=== PATIENT | female | born 1980 | race Caucasian/White ===

== ENCOUNTER 2022-03-28 17:42 | Outpatient (REF) | payer BC, SELFPAY ==
[2022-03-28 18:32] LABS: Influenza A PCR NEGATIVE (Negative); Influenza B PCR NEGATIVE (Negative); Resp Syncy Virus RNA Qual PCR NEGATIVE (Negative); SARS COV2 PCR INHOUSE NEGATIVE (Negative)
== END 2022-03-28 17:43 | disposition home or self-care (01) ==
LOC: HO.LNP 17:42
PROVIDERS: Visit Provider Internal Medicine
DX: Z20.822 Contact with and (suspected) exposure to COVID-19 (principal); R05.9 Cough, unspecified
CPT/HCPCS: 0241U

== ENCOUNTER 2022-05-01 16:39 | Outpatient (REF) | payer BC, SELFPAY ==
[2022-05-01 17:23] LABS: Influenza A PCR NEGATIVE (Negative); Influenza B PCR NEGATIVE (Negative); Resp Syncy Virus RNA Qual PCR NEGATIVE (Negative); SARS COV2 PCR INHOUSE NEGATIVE (Negative)
== END 2022-05-01 16:40 | disposition home or self-care (01) ==
LOC: HO.LNP 16:39
PROVIDERS: Visit Provider Internal Medicine
DX: Z20.822 Contact with and (suspected) exposure to COVID-19 (principal); R05.9 Cough, unspecified
CPT/HCPCS: 0241U

== ENCOUNTER 2022-05-02 06:34 | Outpatient (REF) | payer BC, SELFPAY ==
--- NOTE | ~2022-05-02 | XR_ITS ---
EXAMINATION: XR CHEST CLINICAL INFORMATION: Cough. Posterior pain. COMPARISON: None TECHNIQUE: 2 views of the chest were obtained. FINDINGS: No significant abnormality is noted involving the heart, lungs, mediastinum, bony thorax or soft tissues. There is mild curvature of the lower thoracic spine to the right. XR/XR chest 2V IMPRESSION: No evidence for acute disease in the chest.
== END 2022-05-02 06:35 | disposition home or self-care (01) ==
LOC: HO.XRAY 06:34
PROVIDERS: PCP Internal Medicine; Visit Provider Internal Medicine
DX: R05.9 Cough, unspecified (principal); R07.89 Other chest pain
CPT/HCPCS: 71046

== ENCOUNTER 2023-03-02 16:18 | Outpatient (REF) | payer BC, SELFPAY ==
[2023-03-02 16:29] LABS: MANUAL DIFF FLAG NO
[2023-03-02 16:56] LABS: Basophils Percent Auto 0.5 % (0-2); Eosinophils Absolute Auto 0.1 X10*3/uL (0.0-0.4); Eosinophils Percent Auto 1.2 % (0-4); Hematocrit 36.7 % (37.0-47.0); Hemoglobin 12.4 g/dl (12.0-16.0); Imm Gran Abs Auto 0.02 X10*3/uL (0.00-0.03); Imm Gran Pct Auto 0.3 % (0.0-0.4); Lymphocytes Percent Auto 40.5 % (20-40); Mean Corpuscular HGB Conc 33.8 g/dl (31.0-35.0); Mean Corpuscular Hemoglobin 30.4 pg (27.0-33.0); Mean Platelet Volume 10.1 fL (9.4-12.3); Monocytes Absolute Auto 0.5 X10*3/uL (0.1-1.2); Monocytes Percent Auto 6.2 % (2-11); Neutrophils Absolute Auto 3.7 x10*3/uL (2.0-8.3); Neutrophils Percent Auto 51.3 % (45-73); Platelet Count 251 X10*3/uL (160-400); Red Blood Count 4.08 X10*6/uL (4.20-5.50); White Blood Count 7.3 X10*3/uL (4.8-10.8)
[2023-03-02 17:51] LABS: Alanine Aminotransferase 9 U/L (0-31); Albumin Level 4.3 g/dL (3.5-5.0); Alkaline Phosphatase 64 U/L (39-117); Anion Gap 12 (12-20); Aspartate Amino Transferase 16 U/L (5-31); Bilirubin Total 0.3 mg/dL (0.0-1.0); Blood Urea Nitrogen 15 mg/dL (9-16); C Reactive Protein 0.17 mg/dL (< or = 0.50); Calcium 9.6 mg/dL (8.4-10.2); Carbon Dioxide 26 mmol/L (22-29); Chloride 104 mmol/L (96-108); Estimated Glomerular Filt Rate > 60; Glucose Random 87 mg/dL (60-115); Iron 112 mcg/dL (30-160); Percent Iron Saturation 41 % (15-50); Potassium 3.7 mmol/L (3.3-5.1); Sodium 138 mmol/L (135-145); Total Iron Binding Capacity 272 mcg/dL (228-428); Total Protein 6.8 g/dL (6.5-8.0); Unsaturated Iron Binding 160 ug/dL
== END 2023-03-02 16:19 | disposition home or self-care (01) ==
LOC: HO.LAB 16:18
PROVIDERS: PCP Internal Medicine; Visit Provider Internal Medicine
DX: R10.9 Unspecified abdominal pain (principal); K62.5 Hemorrhage of anus and rectum
CPT/HCPCS: 36415; 80053; 83540; 85025; 86140

== ENCOUNTER 2024-06-23 15:45 | Outpatient (AMB) | payer BC, SELFPAY ==
--- NOTE | 2024-06-23 15:54 | MHC.OFFVIS ---
Intake Visit Reasons: recurrent UTI's Intake Note: New Patient presents for initial visit for recurrent uti Urology Medications: none Blood Thinner: none PVR: 0ml's Svp Chief Marketing Officer Required: No Accompanied by: Self / Same As Patient Allergies No Known Allergies Allergy (Unverified 06/23/24 16:08) Medication List - Last Reconciled 06/23/24 by Stacia Sifuentes MD citalopram mg PO DAILY lorazepam mg PO nitrofurantoin macrocrystal 50 mg orally Use after sexual activity as directed by MD; must administer with a meal/food phenazopyridine (Pyridium) 200 mg orally Use before sexual activity, repeat in 12 hours p.r.n.; do not take on an empty stomach HPI Comments Details: Britt is a 43-year-old female there is a new patient evaluation for recurrent UTIs. The patient states she has had frequent UTIs in the last year and has brought in urine culture results that I have reviewed last year she had 3 urine culture positive UTIs resulting in E coli that were pansensitive on 07/08/2023, 10/30/2023, and 04/13/2024. She complains of increased urinary urgency. The patient states she has also had reoccurring yeast infections. I have discussed that the vaginal pH can decrease in [place] and postmenopausal women due to estrogen changes leading to increase lactobacillus in the epithium of the vagina which may contribute to recurrent UTIs. I have discussed evaluation with ultrasound of the urinary tract and office cystoscopy. Discussed OTC Replens vaginal lubricant may be helpful with balancing vaginal pH. Discussed trial of low-dose antibiotic post intercourse. Macrobid 50 mg, and Pyridium prn. Urine for cytology. Review of Systems Const All systems reviewed & are unremarkable except as noted in HPI and below Reports no additional complaints Eyes Reports no additional complaints ENT Reports no additional complaints Card Reports no additional complaints Resp Reports no additional complaints GI Reports no additional complaints Reports as per HPI Musc Reports no additional complaints Skin/Breast Reports system reviewed and no additional complaints, except as documented Neuro Reports no additional complaints Psych Reports no additional complaints Endo Reports no additional complaints Leonidas/Lymph Reports no additional complaints Aller/Immun Reports no additional complaints Physical Exam Const General: cooperative, healthy appearing and no acute distress Orientation/consciousness: patient oriented x3 HEENT Head: Yes normal to inspection, Yes normocephalic and Yes atraumatic Eyes Conjunctivae: conjunctivae normal Neck Neck: Yes normal visual inspection and Yes trachea midline Chest Chest palpation & inspection: normal inspection of the chest Resp Effort & Inspection: normal respiratory effort GI Inspection: Yes normal to inspection Neuro General: patient oriented x3 Extrem General: No edema Psych Appearance: grossly normal Office Procedures Post Void Residual Post Residual Void Post Void Residual (PVR): 0 [id number] Void Residual by ultrasound Results AMB Urinalysis, Automated UA Leukoctes 0 Megan/uL Last Edit by [employer] on 06/23/24 16:11 UA Nitrite Last Edit by [employer] on 06/23/24 16:11 UA Urobilinogen 0.2 mg/dL Last Edit by [employer] on 06/23/24 16:11 UA Protein 0 mg/dL Last Edit by [employer] on 06/23/24 16:11 UA pH 6.0 Last Edit by [employer] on 06/23/24 16:11 UA Blood 0 Melo/uL Last Edit by [employer] on 06/23/24 16:11 UA Specific [place] 1.015 Last Edit by [employer] on 06/23/24 16:11 UA Ketone Last Edit by [employer] on 06/23/24 16:11 UA Bilirubin 0 mg/dL Last Edit by [employer] on 06/23/24 16:11 UA Glucose 0 mg/dL Last Edit by [employer] on 06/23/24 16:11 Results Reviewed Results Reviewed: Laboratory Last Values Urine pH (Auto) 6.0 06/23/24 16:09 Specific [place] (Auto) 1.015 06/23/24 16:09 Urine Protein (Auto) 0 mg/dL 06/23/24 16:09 Glucose (UA)(Auto) 0 mg/dL 06/23/24 16:09 Urine Blood (Auto) 0 Melo/uL 06/23/24 16:09 Urine Bilirubin (Auto) 0 mg/dL 06/23/24 16:09 Urine Urobilinogen (Auto) 0.2 mg/dL 06/23/24 16:09 Leukocyte Esterase (Auto) 0 Megan/uL 06/23/24 16:09 Assessment & Plan Assessment & Plan (1) Recurrent urinary tract infection: Code(s): N39.0 - Urinary tract infection, site not specified Category: Medical (2) Urinary urgency: Code(s): R39.15 - Urgency of urination Category: Medical Plan Discussed trial of low-dose antibiotic post intercourse. Macrobid 50 mg, and Pyridium prn. Urine for cytology. Ultrasound urinary tract. Follow-up office cystoscopy. Orders: Orders US retroperitoneal comp Today N39.0 - Urinary tract infection, site not specified, R39.15 - Urgency of urination AMB Urinalysis Automated Today Z13.9 - Encounter for screening, unspecified AMB Post Void Residual by ultrasound Today Z13.9 - Encounter for screening, unspecified Urine Cytology Today N39.0 - Urinary tract infection, site not specified Medications: New phenazopyridine (Pyridium) 200 mg orally Use before sexual activity, repeat in 12 hours p.r.n.; do not take on an empty stomach 30 tabs 1RF nitrofurantoin macrocrystal 50 mg orally Use after sexual activity as directed by MD; must administer with a meal/food 30 caps 1RF Patient Instructions: The patient had an opportunity to ask questions regarding treatment plan. The patient expressed understanding and agreement with the above treatment plan. The patient is aware they should contact our office by phone for worsening of their current condition or the appearance of new symptoms. Compliance is encouraged with any medications and followup testing that is ordered. It is a privilege to be allowed the opportunity to participate in the urologic care of your patient. If you have any questions or concerns regarding treatment for the above conditions please do not hesitate to contact me. The office telephone contact is [phone]. This note is constructed in part using voice recognition software. While every effort has been made to ensure accuracy equipment sterilizer errors may have been included. Yours sincerely, Stacia Sifuentes MD Coding Level of Care Code New Pt Level 4 (34640) Diagnoses Recurrent urinary tract infection N39.0 Urinary urgency R39.15 CPT Codes Post Residual Void - PVR CPT Code: 16694-Oido Void Residual by ultrasound ([id number])
== END 2024-06-23 16:26 | disposition home or self-care (01) ==
LOC: HO.HUSH 15:45
PROVIDERS: PCP Internal Medicine; Visit Provider Urology
DX: N39.0 Urinary tract infection, site not specified (principal); R39.15 Urgency of urination; Z13.9 Encounter for screening, unspecified
CPT/HCPCS: 99204

== ENCOUNTER 2024-06-23 15:45 | Outpatient (REF) | payer BC, SELFPAY ==
[2024-06-23 17:01] LABS: Urine Cytology See Pathology rpt
== END 2024-06-23 15:46 | disposition home or self-care (01) ==
LOC: HO.LAB 15:45
PROVIDERS: PCP Internal Medicine; Visit Provider Urology
DX: R39.15 Urgency of urination (principal); N39.0 Urinary tract infection, site not specified
CPT/HCPCS: 51798; 81003; 88112

== ENCOUNTER 2024-07-29 16:12 | Outpatient (REF) | payer BC, SELFPAY ==
--- NOTE | ~2024-07-29 | US_ITS ---
EXAMINATION: US RETROPERITONEUM HISTORY: N39.0 - Urinary tract infection, site not specified TECHNIQUE: Real-time grayscale ultrasound imaging of the kidneys was performed and images were reviewed. COMPARISON: Correlation is made with the report of an abdominal ultrasound dated 04/20/2012. FINDINGS: Right kidney: The right kidney measures 11.3 x 3.8 x 5.3 cm. Renal parenchymal echotexture and thickness are normal. There are no masses. There is no hydronephrosis or renal calculi. Left Kidney: The left kidney measures 10.3 x 4.8 x 4.9 cm. Renal parenchymal echotexture and thickness are normal. There are no masses. There is no hydronephrosis or renal calculi. The urinary bladder is unremarkable. Bilateral ureteral jets are identified. Prior to voiding, the urinary bladder measured 11.1 x 10.1 x 9.4 cm, for an estimated volume of 548 mL. After voiding, the urinary bladder measured 4.2 x 2.8 x 2.5 cm, for an estimated volume of 15 mL. Incidental note is made of an echogenic mass in the right lobe of the liver measuring 5.0 x 4.0 x 3.5 cm. This may represent a hemangioma, but is much larger in size than reported on the prior study (previously 1.4 cm). US/US retroperitoneal comp IMPRESSION: 1. Unremarkable renal ultrasound. Post void bladder residual of 15 mL. 2. 5.0 x 4.0 x 3.5 cm echogenic mass in the right lobe of the liver which may represent a hemangioma. However, this is much larger than reported on the prior study. Liver MRI is recommended. Electronically signed by: Danilo York MD 08/01/2024 07:09 AM EDT
== END 2024-07-29 16:13 | disposition home or self-care (01) ==
LOC: HO.US 16:12
PROVIDERS: PCP Internal Medicine; Visit Provider Urology
DX: N39.0 Urinary tract infection, site not specified (principal); R39.15 Urgency of urination
CPT/HCPCS: 76770

== ENCOUNTER → 2024-07-29 16:13 | Outpatient (BNV) | payer BC, SELFPAY | PROVIDERS: PCP Internal Medicine; Visit Provider Radiology Diagnostic Radiology | DX: N39.43 Post-void dribbling (principal); K76.89 Other specified diseases of liver | CPT/HCPCS: 76770 ==

== ENCOUNTER 2024-08-05 16:01 | Outpatient (AMB) | payer BC, SELFPAY ==
--- NOTE | 2024-08-05 16:03 | A.OFFVIS_ITS ---
Intake Visit Reasons: 5w/US Intake Note: Patient presents for initial visit for 5w/US Urology Medications: macrobid Blood Thinner:none Allergy to Antibiotic:none Research Associate Molecular Biology Required: No Accompanied by: Self / Same As Patient Allergies No Known Allergies Allergy (Verified 08/05/24 16:04) Medication List - Last Reconciled 08/05/24 by Stacia Sifuentes MD citalopram mg PO DAILY lorazepam mg PO nitrofurantoin macrocrystal 50 mg orally Use after sexual activity as directed by MD; must administer with a meal/food HPI Comments Details: 08/05/24--43-year-old female presenting with recurrent urinary tract infections. She has been experiencing these infections periodically and, for management, was placed on a low-dose prophylactic antibiotic regimen following intercourse, which has so far proven effective. She has not reported any further episodes of UTIs since adopting this treatment. During a renal ultrasound, initially intended to evaluate her urinary disorders, an incidental finding revealed echogenic foci in the liver. She expresses significant concern about this finding and desires a detailed assessment regarding its implication. Currently, there are no chronic urinary symptoms, and her recent urinalysis results show no abnormalities. Referral to GI. Results - Renal Ultrasound: Kidneys normal; echogenic foci in the liver detected - Urine cytology: Negative for malignant cells, 06/23/24--Britt is a 43-year-old female there is a new patient evaluation for recurrent UTIs. The patient states she has had frequent UTIs in the last year and has brought in urine culture results that I have reviewed last year she had 3 urine culture positive UTIs resulting in E coli that were pansensitive on 07/08/2023, 10/30/2023, and 04/13/2024. She complains of increased urinary urgency. The patient states she has also had reoccurring yeast infections. I have discussed that the vaginal pH can decrease in [place] and postmenopausal women due to estrogen changes leading to increase lactobacillus in the epithium of the vagina which may contribute to recurrent UTIs. I have discussed evaluation with ultrasound of the urinary tract and office cystoscopy. Discussed OTC Replens vaginal lubricant may be helpful with balancing vaginal pH. Discussed trial of low-dose antibiotic post intercourse. Macrobid 50 mg, and Pyridium prn. Urine for cytology. Review of Systems Const All systems reviewed & are unremarkable except as noted in HPI and below Reports no additional complaints Eyes Reports no additional complaints ENT Reports no additional complaints Card Reports no additional complaints Resp Reports no additional complaints GI Reports no additional complaints Reports as per HPI Musc Reports no additional complaints Skin/Breast Reports system reviewed and no additional complaints, except as documented Neuro Reports no additional complaints Psych Reports no additional complaints Endo Reports no additional complaints Leonidas/Lymph Reports no additional complaints Aller/Immun Reports no additional complaints Office Procedures Post Void Residual Post Residual Void Post Void Residual (PVR): 0 [id number] Void Residual by ultrasound Results AMB Urinalysis, Automated UA Leukoctes 0 Megan/uL Last Edit by Viktoriya Alberto on 08/05/24 16:24 UA Nitrite Negative Last Edit by Viktoriya Alberto on 08/05/24 16:24 UA Urobilinogen 0.2 mg/dL Last Edit by Viktoriya Alberto on 08/05/24 16:24 UA Protein 15 mg/dL Last Edit by Viktoriay Alberto on 08/05/24 16:24 UA pH 6.0 Last Edit by Viktoriya Alberto on 08/05/24 16:24 UA Blood 0 Melo/uL Last Edit by Viktoriya Alberto on 08/05/24 16:24 UA Specific [place] 1.020 Last Edit by Viktoriya Alberto on 08/05/24 16:24 UA Ketone Negative Last Edit by Viktoriya Alberto on 08/05/24 16:24 UA Bilirubin 0 mg/dL Last Edit by Viktoriya Alberto on 08/05/24 16:24 UA Glucose 0 mg/dL Last Edit by Viktoriya lAberto on 08/05/24 16:24 Results Reviewed Results Reviewed: Laboratory Last Values Urine pH (Auto) 6.0 08/05/24 16:21 Specific [place] (Auto) 1.020 08/05/24 16:21 Urine Protein (Auto) 15 mg/dL 08/05/24 16:21 Glucose (UA)(Auto) 0 mg/dL 08/05/24 16:21 Urine Ketones (Auto) Negative 08/05/24 16:21 Urine Blood (Auto) 0 Melo/uL 08/05/24 16:21 Urine Nitrite (Auto) Negative 08/05/24 16:21 Urine Bilirubin (Auto) 0 mg/dL 08/05/24 16:21 Urine Urobilinogen (Auto) 0.2 mg/dL 08/05/24 16:21 Leukocyte Esterase (Auto) 0 Megan/uL 08/05/24 16:21 Collected: 06/23/24 Location: .LAB Received: 06/24/24 Diagnosis Urine: Negative for high-grade urothelial carcinoma. See comment. COMMENT: Cellular specimen consisting of squamous cells and few macrophages. Date of Service: 07/29/24 EXAMINATION: US RETROPERITONEUM HISTORY: N39.0 - Urinary tract infection, site not specified TECHNIQUE: Real-time grayscale ultrasound imaging of the kidneys was performed and images were reviewed. COMPARISON: Correlation is made with the report of an abdominal ultrasound dated 04/20/2012. FINDINGS: Right kidney: The right kidney measures 11.3 x 3.8 x 5.3 cm. Renal parenchymal echotexture and thickness are normal. There are no masses. There is no hydronephrosis or renal calculi. Left Kidney: The left kidney measures 10.3 x 4.8 x 4.9 cm. Renal parenchymal echotexture and thickness are normal. There are no masses. There is no hydronephrosis or renal calculi. The urinary bladder is unremarkable. Bilateral ureteral jets are identified. Prior to voiding, the urinary bladder measured 11.1 x 10.1 x 9.4 cm, for an estimated volume of 548 mL. After voiding, the urinary bladder measured 4.2 x 2.8 x 2.5 cm, for an estimated volume of 15 mL. Incidental note is made of an echogenic mass in the right lobe of the liver measuring 5.0 x 4.0 x 3.5 cm. This may represent a hemangioma, but is much larger in size than reported on the prior study (previously 1.4 cm). 1. Unremarkable renal ultrasound. Post void bladder residual of 15 mL. 2. 5.0 x 4.0 x 3.5 cm echogenic mass in the right lobe of the liver which may represent a hemangioma. However, this is much larger than reported on the prior study. Liver MRI is recommended. Assessment & Plan Assessment & Plan (1) Liver lesion: Code(s): K76.9 - Liver disease, unspecified Category: Medical (2) Recurrent urinary tract infection: Code(s): N39.0 - Urinary tract infection, site not specified Category: Medical Plan Plan - Continue the current antibiotic regimen as prescribed. - Expect a call from the GI specialist office for appointment scheduling. - Monitor for any recurrent symptoms of UTI and report promptly. - Plan for a follow-up appointment in six months for re-evaluation. Orders: Orders AMB Urinalysis Automated Today Z13.9 - Encounter for screening, unspecified Referrals Gastroenterology Referral K76.9 - Liver disease, unspecified Patient Instructions: The patient had an opportunity to ask questions regarding treatment plan. The patient expressed understanding and agreement with the above treatment plan. The patient is aware they should contact our office by phone for worsening of t heir current condition or the appearance of new symptoms. Compliance is encouraged with any medications and followup testing that is ordered. It is a privilege to be allowed the opportunity to participate in the urologic care of your patient. If you have any questions or concerns regarding treatment for the above conditions please do not hesitate to contact me. The office telephone contact is [phone]. This note is constructed in part using voice recognition software. While every effort has been made to ensure accuracy packaging supervisor errors may have been included. Yours sincerely, Stacia Sifuentes MD Scribe Plan - Not visible on output: Patient was informed and verbally consented to the use of an ambient scribe for clinic note documentation during this visit. Coding Level of Care Code Est Pt Level 4 (61007) Diagnoses Liver lesion K76.9 Recurrent urinary tract infection N39.0 CPT Codes Post Residual Void - PVR CPT Code: 25144-[facility] Void Residual by ultrasound ([id number])
== END 2024-08-05 16:35 | disposition home or self-care (01) ==
LOC: HO.HUSH 16:01
PROVIDERS: PCP Internal Medicine; Visit Provider Urology
DX: K76.9 Liver disease, unspecified (principal); N39.0 Urinary tract infection, site not specified; Z13.9 Encounter for screening, unspecified
CPT/HCPCS: 99214

== ENCOUNTER → 2024-08-05 16:01 | Outpatient (BNVA) | payer BC, SELFPAY | PROVIDERS: PCP Internal Medicine; Visit Provider Urology | DX: K76.9 Liver disease, unspecified (principal); N39.0 Urinary tract infection, site not specified | CPT/HCPCS: 51798; 81003 ==

== ENCOUNTER 2024-08-17 13:04 | Outpatient (AMB) | payer BC, SELFPAY ==
--- NOTE | 2024-08-17 13:12 | A.OFFPC_ITS ---
Vital Signs 08/17/24 13:15 Height 5 ft 3 in Weight 154 lb BMI 27.3 BP 120/72 Blood Pressure Location Lt brachial Position Sitting Pulse 92 Pulse Source Pulse Oximeter Temp 97.4 F Temp Source Axillary Pulse Oximetry (%) 97 Oxygen Delivery Method Room Air Intake Visit Reasons: Routine Referral Lead Janitor Required: No Accompanied by: Self / Same As Patient Allergies No Known Allergies Allergy (Verified 08/17/24 13:49) Medication List - Last Reconciled 08/17/24 by Tyrel Golden MD citalopram mg PO DAILY lorazepam 0.5 mg PO DAILY PRN nitrofurantoin macrocrystal 50 mg orally Use after sexual activity as directed by MD; must administer with a meal/food Tobacco use date assessed: 08/17/24 Dental Screening Dental Screen Date: 08/17/24 Did you have a dental visit in the last 12 months?: Yes Did you have a dental problem in the last 6 months where you did not have access to dental care?: No [facility] Medical History (Updated 08/17/24 @ 13:50 by Tyrel Golden MD) Generalized anxiety disorder Hemangioma of liver Family History Mother No problems noted. Father No problems noted. Social History Housing: House Patient Tobacco Use Status: Never used Tobacco e-Cigarette/Vaping Use: Never Used service: No Current occupational status: employed Cognitive needs: No Hearing needs: No Vision needs: Yes (reading glasses) Questionnaire PHQ-9 Over the last 2 weeks, how often have you been bothered by any of the following problems? 1. Little interest or pleasure in doing things: not at all 2. Feeling down, depressed, or hopeless: not at all 3. Trouble falling or staying asleep, or sleeping too much: not at all 4. Feeling tired or having little energy: not at all 5. Poor appetite or overeating: not at all 6. Feeling bad about yourself - or that you are a failure or have let yourself or your family down: not at all 7. Trouble concentrating on things, such as reading the newspaper or watching television: not at all 8. Moving or speaking so slowly that other people could have noticed. Or the opposite - being so fidgety or restless that you have been moving around a lot more than usual: not at all 9. Thoughts that you would be better off or of hurting yourself in some way: not at all Total score: 0 Depression Screening Interpretation: Negative Depression Screening Done: Yes Source: Developed by Drs. Danilo Santos, Juani Peralta, Miki Bonilla and colleagues, with an educational mariah from [employer]. Thrive Questionnaire Date Thrive assessed: 08/17/24 I am a: Patient Within the past 12 months, did the food you bought not last and you didn't have the money to get more?: Never true Within the past 12 months, did you worry whether your food would run out before you got money to buy more?: Never true Do you have trouble paying for medicines?: No Do you have trouble getting transportation to medical appointments?: No Do you have trouble paying your heating and electricity bill?: No Do you have trouble taking care of your child, family member or friend?: No Do you have trouble with day-to-day activities such as bathing, preparing meals, shopping, managing finances, etc.?: No Are you currently unemployed and looking for a job?: No Are you interested in more education?: No Currently or been in a relationship where the following occur: No concerns reported THRIVE Score: 0 AUDIT C Alcohol Use Questionnaire (AUDIT-C) 1. How often do you have a drink containing alcohol?: Monthly or less 2. How many drinks containing alcohol do you have on a typical day when you are drinking?: 1 or 2 3. How often do you have six or more drinks on one occasion?: Less than monthly Total Score: 2 NOEMI-7 AMB Questionnaire NOEMI-7 Date NOEMI - 7 assessed: 08/17/24 Feeling nervous, anxious, or on edge: 0 = Not at all Not being able to stop or control worryin = Not at all Worrying too much about different things: 0 = Not at all Trouble relaxin = Not at all Being so restless that it is hard to sit still: 0 = Not at all Becoming easily annoyed or irritable: 0 = Not at all Feeling afraid as if something awful might happen: 0 = Not at all Total NOEMI-7 score (0-4 normal; 5-9 mild; 10-14 moderate; 15-21 severe): 0 Source: Developed by Drs. Danilo Santos, Juani Peralta, Miki Bonilla and colleagues, with an educational mariah from [employer]. Physical exam (Primary Care) Vital Signs: Last Vital Signs Temp 97.4 F 08/17/24 13:15 Pulse 92 08/17/24 13:15 BP 120/72 08/17/24 13:15 Pulse Ox 97 08/17/24 13:15 Oxygen Delivery Method Room Air 08/17/24 13:15 Care Plan Goal for BP management: BP is in range. BMI result Body Mass Index 27.3 Tobacco/Smoking Status: Tobacco use Status Tobacco use date assessed 08/17/24 08/17/24 13:14 Patient Tobacco Use Status Never used Tobacco 08/17/24 13:14 e-Cigarette/Vaping Use Never Used 08/17/24 13:14 PHQ-9: PHQ-9 Score PHQ-9: Total score 0 08/17/24 13:14 Depression Screening Interpretation: Negative Thrive Assessment: Date of Thrive Assessment Date Thrive assessed 08/17/24 08/17/24 13:14 Currently or been in a relationship where the following occur: No concerns reported Coding Level of Care Code New Pt Level 4 (44722) Complex EM visit Add On G2211 Diagnoses Hemangioma of liver D18.03 Generalized anxiety disorder F41.1 Assessment & Plan Assessment & Plan (1) Hemangioma of liver: Code(s): D18.03 - Hemangioma of intra-abdominal structures Category: Medical Plan: MR of the abdomen ordered. (2) Generalized anxiety disorder: Code(s): F41.1 - Generalized anxiety disorder Category: Medical Plan History of Present Illness The patient is a 43-year-old female presenting with a request for a referral to a logistics support following the discovery of an incidental liver finding during an ultrasound conducted as part of a workup for recurrent urinary tract infections. After experiencing recurrent urinary tract infections, the patient consulted Dr. Kwaku Ferraro, a urologist, and underwent a kidney and bladder ultrasound. The ultrasound showed normal results for the kidneys and bladder, but revealed an unexpected liver finding. The patient received a recommendation for a liver MRI. However, during her follow-up visit with the urologist, the issue was not addressed, and the patient was directed to seek a referral for a logistics support consultation. The patient expressed concern about this incidental finding and is anxious for further evaluation and management, emphasizing her need for a primary care provider's referral to proceed with the gastroenterological assessment. Social History Review of Systems - Genitourinary: Reports recurrent urinary tract infections. - Gastrointestinal: Reports incidental finding on liver. Physical Exam General: Cooperative and healthy appearing Nutritional Appearance: Well nourished Orientation/consciousness: Patient oriented x3 Limitations: No limitations Head: Normal to inspection General: Appearance normal, both eyes and all related structures Neck: Normal visual inspection Chest: Normal palpation of entire chest wall Respiratory: Normal respiratory effort Neurology: Patient oriented x3 Results - Imaging: Incidental liver finding noted on kidney and bladder ultrasound. Plan A referral to a logistics support is planned to further evaluate the incidental liver finding noted during the patient?s recent kidney and bladder ultrasound. T his referral is based on the need to assess and manage the liver finding appropriately and to explore potential underlying conditions. I acknowledged the patient's concerns regarding the finding and emphasized the importance of specialist input in this matter. Patient was informed and verbally consented to the use of an ambient scribe for clinic note documentation during this visit. Discussion Notes We discussed the importance of evaluating the incidental liver finding with a logistics support, as recommended in the imaging report. I explained that the logistics support would provide a more detailed assessment and outline the appropriate next steps. We discussed the need for a referral and its role in gaining access to specialist care for further evaluation. The patient expressed concern and anxiety regarding the incidental finding. I reassured her that the referral is a necessary step to ensure comprehensive evaluation and peace of mind. Patient Instructions - Seek a referral to a logistics support for evaluation of the liver finding. - Follow up with the logistics support as advised. - Report any new symptoms immediately. Orders: Orders Basic Metabolic Panel Today K76.9 - Liver disease, unspecified Complete Blood Count no Diff Today K76.9 - Liver disease, unspecified Liver Panel Today K76.9 - Liver disease, unspecified UA and rflx microscopic Today K76.9 - Liver disease, unspecified Lipid Panel Today K76.9 - Liver disease, unspecified Thyroid Stimulating Hormone Today K76.9 - Liver disease, unspecified MR abdomen wo/w con Today D18.03 - Hemangioma of intra-abdominal structures
[2024-08-17 13:15] VITALS: BP 120/72; PULSE 92; TEMP 36.3; O2SAT 97; BMI 27.3
== END 2024-08-17 13:44 | disposition home or self-care (01) ==
LOC: HO.HMCHD 13:08
PROVIDERS: PCP Internal Medicine; Visit Provider Internal Medicine
DX: D18.03 Hemangioma of intra-abdominal structures (principal); F41.1 Generalized anxiety disorder

== ENCOUNTER → 2024-08-17 13:04 | Outpatient (BNVA) | payer BC, SELFPAY | PROVIDERS: PCP Internal Medicine; Visit Provider Internal Medicine ==

== ENCOUNTER 2024-09-01 08:41 | Outpatient (REF) | payer BC, SELFPAY ==
--- NOTE | ~2024-09-01 | MR_ITS ---
EXAMINATION: MRI Abdomen without and with contrast HISTORY: D18.03 - Hemangioma of intra-abdominal structures COMPARISON: Relation is made with a retroperitoneal ultrasound dated 07/29/2024. TECHNIQUE: Axial in and out of phase T1-weighted gradient echo, axial diffusion weighted, and axial and coronal HASTE T2 with fat saturation images were obtained through the abdomen. Subsequently, fat suppressed axial and coronal T1-weighted images were obtained after the intravenous administration of 7 mL Gadavist. FINDINGS: There is no significant signal loss within the liver on opposed phase imaging to suggest steatosis. There is a 3.6 x 3.0 x 4.3 cm T2 hyperintense lobulated mass in segment VII corresponding to the abnormality noted on ultrasound. This lesion demonstrates peripheral nodular enhancement with gradual fill in over time. Findings are consistent with a hemangioma. There is an additional 8 mm hemangioma in segment VIII and an 8 mm hemangioma in segment . There is a 2.4 cm cyst in segment IV. The hepatic and portal veins are patent. There is no intra or extrahepatic biliary ductal dilatation. The gallbladder, spleen, pancreas, adrenals, and kidneys are unremarkable. No retroperitoneal lymphadenopathy or ascites is identified in the upper abdomen. The visualized bones demonstrate normal marrow signal intensity. MR/MR abdomen wo/w con IMPRESSION: Dominant 3.6 x 3.0 x 4.3 cm hemangioma in segment VII corresponding to the abnormality noted on ultrasound. Additional smaller subcentimeter hemangiomata are noted as described. Electronically signed by: Danilo York MD 09/02/2024 08:39 AM EDT
[2024-09-01 09:43] LABS: Hematocrit 39.8 % (37.0-47.0); Hemoglobin 13.4 g/dl (12.0-16.0); Mean Corpuscular HGB Conc 33.7 g/dl (31.0-35.0); Mean Corpuscular Hemoglobin 29.9 pg (27.0-33.0); Mean Corpuscular Volume 88.8 fL (80.0-98.0); Platelet Count 269 X10*3/uL (160-400); Red Blood Count 4.48 X10*6/uL (4.20-5.50); Red Cell Distribution Width 11.8 % (11.0-16.0); White Blood Count 5.1 X10*3/uL (4.8-10.8)
[2024-09-01 09:49] LABS: Appearance Urine Cloudy; Color Urine Yellow; Glucose Urine UA Negative (Negative); Leukocyte Esterase Urine Negative (Negative); Nitrite Urine Negative (Negative); Urine Blood Negative (Negative); Urine Ketones Negative (Negative); Urine Protein Negative (Neg-Trace)
[2024-09-01] MEDS: gadobutroL 7.5 ML VIAL IVPUSH (10:12)
[2024-09-01 10:34] LABS: Alanine Aminotransferase 17 U/L (0-31); Albumin Level 4.2 g/dL (3.5-5.0); Alkaline Phosphatase 65 U/L (39-117); Anion Gap 11 (12-20); Aspartate Amino Transferase 21 U/L (5-31); Bilirubin Direct 0.2 mg/dL (0.0-0.5); Bilirubin Total 0.5 mg/dL (0.0-1.0); Blood Urea Nitrogen 16 mg/dL (9-16); Calcium 9.1 mg/dL (8.4-10.2); Carbon Dioxide 24 mmol/L (22-29); Chloride 108 mmol/L (96-108); Cholesterol 220 mg/dL (<200); Estimated Glomerular Filt Rate > 60; Glucose Random 101 mg/dL (60-115); HDL Cholesterol 54 mg/dL (>40); LDL Cholesterol Calculated 137 mg/dL (<100); Potassium 4.2 mmol/L (3.3-5.1); Sodium 139 mmol/L (135-145); Total Protein 6.7 g/dL (6.5-8.0); Triglycerides 147 mg/dL (<150)
[2024-09-01 10:36] LABS: Thyroid Stimulating Hormone 2.65 uIU/mL (0.32-4.0)
== END 2024-09-01 08:42 | disposition home or self-care (01) ==
LOC: HO.MRI 08:41
PROVIDERS: PCP Internal Medicine; Visit Provider Internal Medicine
DX: D18.03 Hemangioma of intra-abdominal structures (principal); K76.9 Liver disease, unspecified
CPT/HCPCS: 36415; 74183; 80048; 80061; 80076; 81003; 84443; 85027; A9585

== ENCOUNTER → 2024-09-01 09:02 | Outpatient (BNV) | payer BC, SELFPAY | PROVIDERS: PCP Internal Medicine; Visit Provider Radiology Diagnostic Radiology | DX: D18.03 Hemangioma of intra-abdominal structures (principal) | CPT/HCPCS: 74183 ==

== ENCOUNTER 2025-03-08 15:44 | Outpatient (AMB) | payer BC, SELFPAY ==
--- NOTE | 2025-03-08 14:04 | MHC.PC.OV ---
Vital Signs 03/08/25 15:51 Height 5 ft 2.52 in Weight 71.214 kg BMI 28.2 BP 120/76 Blood Pressure Location Lt brachial Position Sitting Respiration 18 Pulse 80 Pulse Source Pulse Oximeter Temp 97.6 F Temp Source Temporal Artery Scan Pulse Oximetry (%) 98 Oxygen Delivery Method Room Air Intake Visit Reasons: ROUTINE Saddle Maker Required: No Accompanied by: Self / Same As Patient Allergies No Known Allergies Allergy (Verified 03/08/25 14:04) Medication List - Last Reconciled 03/08/25 by VANESSA Santiago albuterol sulfate 90 mcg/actuation (Ventolin HFA) 1 inh inhalation QID PRN albuterol sulfate 90 mcg/actuation 2 inhalations inhalation Q6H PRN citalopram mg PO DAILY doxycycline hyclate 50 mg PO BID lorazepam 0.5 mg PO DAILY PRN tacrolimus 0.1% topical Tobacco use date assessed: 08/17/24 Dental Screening Dental Screen Date: 08/17/24 HPI HPI Comments History of Present Illness Details 44-year-old female with history of generalized anxiety disorder, asthma, recurrent UTI, hemangioma of the liver presenting to the office today for management of chronic conditions and to establish care. Mild intermittent asthma- triggered by URI. Only uses with upper respiratory infection NOEMI- no therapist/psychiatrist. On celexa and ativan Perioral dermatitis/periorbital dermatitis- uses doxy 50 mg twice daily for prophylaxis. Chronic yeast infections as a result. Follows with Kimmie Noel at [facility]. pre and probiotic as well as activity yogurt Hyperlipidemia-last LDL 136. Not on statin Liver hemangioma- MRI abdomen with/without contrast 08/2024: Dominant 3.6 x 3.0 x 4.3 cm hemangioma in segment VII corresponding to the abnormality noted on ultrasound. Additional smaller subcentimeter hemangiomata are noted as described. LFTs WNL. Has not seen GI for this. No abd pain, n/v, jaundice Concerns: ?Perimenopause- feels more reactive. decreased libido. difficulty losing weight. Difficulties with word finding adhd- long standing. good student. More recently scatter brained, all over the place Health maintenance: Due for mammogram Colonoscopy scheduled for next month Last Pap 05/2021 with 5 year follow-up advised. Follows annually with recruiting operations consultant. Dr. Leon at [facility] ROS: See HPI EXAM: Constitutional - Awake and Alert, No apparent distress Eyes - PERRL Cardiovascular - S1S2, RRR, No edema Respiratory - Normal lung expansion, Normal respiratory effort, No respiratory distress, CTA bilaterally Extremities - no calf tenderness bilaterally, no swelling Skin - Warm/Dry Neurological - Alert & oriented x3 Psychological - Appropriate affect [facility] Medical History (Updated 03/08/25 @ 17:01 by VANESSA Santiago) Attention deficit Hyperlipidemia Generalized anxiety disorder Hemangioma of liver Family History (Updated 03/08/25 @ 16:14 by VANESSA Santiago) Mother No problems noted. Father HLD (hyperlipidemia) Diabetes HTN (hypertension) Acoustic neuroma Pulmonary embolism Social History Housing: House Patient Tobacco Use Status: Never used Tobacco e-Cigarette/Vaping Use: Never Used service: No Current occupational status: employed Cognitive needs: No Hearing needs: No Vision needs: Yes (reading glasses) Questionnaire Thrive Questionnaire Date Thrive assessed: 08/17/24 NOEMI-7 AMB Questionnaire NOEMI-7 Date NOEMI - 7 assessed: 08/17/24 Source: Developed by Drs. Danilo Santos, Juani Peralta, Miki Bonilla and colleagues, with an educational mariah from [employer]. Physical exam (Primary Care) Vital Signs: Last Vital Signs Temp 97.6 F 03/08/25 15:51 Pulse 80 03/08/25 15:51 Resp 18 03/08/25 15:51 BP 120/76 03/08/25 15:51 Pulse Ox 98 03/08/25 15:51 Oxygen Delivery Method Room Air 03/08/25 15:51 BMI result Body Mass Index 28.2 Tobacco/Smoking Status: Tobacco use Status Tobacco use date assessed 08/17/24 03/08/25 14:04 Patient Tobacco Use Status Never used Tobacco 03/08/25 14:04 e-Cigarette/Vaping Use Never Used 03/08/25 14:04 Thrive Assessment: Date of Thrive Assessment Date Thrive assessed 08/17/24 03/08/25 14:04 Coding Level of Care Code New Pt Level 4 (35900) Diagnoses Hyperlipidemia E78.5 Attention deficit R41.840 Perimenopausal N95.1 Hemangioma of liver D18.03 Periorbital dermatitis L30.9 Assessment & Plan Assessment & Plan (1) Hyperlipidemia: Code(s): E78.5 - Hyperlipidemia, unspecified Category: Medical Plan: LDL 136. Recommend diet low in saturated fats and highly processed foods. Regular exercise (2) Attention deficit: Code(s): R41.840 - Attention and concentration deficit Category: Medical Plan: Question if this is related to hormonal fluctuation/perimenopause. Advised further discussion with recruiting operations consultant or functional medicine provider regarding hormonal imbalance and consideration for hormone replacement. Can have further discussion on medications specific to adhd if indicated (3) Perimenopausal: Code(s): N95.1 - Menopausal and female climacteric states Category: Medical Plan: As above (4) Hemangioma of liver: Code(s): D18.03 - Hemangioma of intra-abdominal structures Category: Medical Plan: Mild-medium sized hemangiomas of the liver. Referred to gastroenterology for further evaluation, will likely need imaging surveillance if not further intervention (5) Periorbital dermatitis: Code(s): L30.9 - Dermatitis, unspecified Category: Medical Plan: Doxycycline causing recurrent vulvovaginal candidiasis. Given her other medications, would not recommend prophylaxis with fluconazole. However can use this as needed 1 time dose. Recommend following up with her mold carrier to discuss other treatment options besides doxycycline. Advised to continue with pre and probiotic can also use yogurt for life cultures. Plan Follow-up for annual physical exam Orders: Orders MM tomosynthesis screening BI Today Z12.31 - Encounter for screening mammogram for malignant neoplasm of breast Referrals Gastroenterology Referral D18.03 - Hemangioma of intra-abdominal structures Medications: New fluconazole Repeat course as needed no more than once monthly 150 mg PO Q3D 2 tabs 5RF 2 doses
[2025-03-08 15:51] VITALS: BP 120/76; PULSE 80; RESP 18; TEMP 36.4; O2SAT 98; BMI 28.2
--- OUTSIDE RECORDS SUMMARY | 2025-03-08 19:57 | XMS_ITS | Clinical Summary ---
Author Organization [facility] Address [address] [place] [id number] Phone Care Team Providers Care Computerized Table Cutter Name Role Phone Darin Alejandra MD Primary Care Provider Allergies Active Allergy Reactions Criticality Noted Date Comments Adhesive Itching 04/13/2024 Medications citalopram (CELEXA) 20 MG tablet Take 20 mg by mouth daily. Active phenazopyridine (PYRIDIUM) 100 MG tablet Take 2 tablets (200 mg total) by mouth 3 (three) times a day as needed for pain (specific location in comments) (URINARY DISCOMFORT). 12 tablet 4 Active phenazopyridine (PYRIDIUM) 100 MG tablet Take 2 tablets (200 mg total) by mouth 3 (three) times a day as needed for pain (specific location in comments) (URINARY DISCOMFORT). 12 tablet Active Additional Information Patient not taking.Reported on 04/13/2024 Active Problems No known active problems Immunizations No known immunizations Social History Tobacco Use Types Packs/Day Years Used Date Smoking Tobacco: Former Cigarettes Smokeless Tobacco: Never Tobacco Cessation:Counseling Given: Not Answered Education Answer Date Recorded Are you interested in more education? Not on dora e 06/21/2023 Are you concerned about learning? Not on file 06/21/2023 No 06/21/2023 No 06/21/2023 Digital Access Answer Date Recorded No 06/21/2023 No 06/21/2023 Reliable internet access at home? Not on file 06/21/2023 Device with a working camera? Not on file Comments Unknown Sex and Gender Information Value Date Recorded Sex Assigned at Not on file Legal Sex Female 11:47 AM EST Gender Identity Not on file Sexual Orientation Not on file Last Filed Vital Signs Vital Sign Reading Time Taken Comments Blood Pressure 118/79 04/13/2024 3:43 PM EST Pulse 88 04/13/2024 3:43 PM EST Temperature 36.6 C (97.8 F) 04/13/2024 3:43 PM EST Respiratory Rate 17 04/13/2024 3:43 PM EST Oxygen Saturation 99% 04/13/2024 3:43 PM EST Inhaled Oxygen Concentration - - Weight 68 kg (150 lb) 06/30/2023 10:41 AM EST pe r pt Height - - Body Mass Index - - Plan of Treatment Health Maintenance Due Date Last Done Comments Adult Td,Tdap Booster 1979 LIPID PANEL 1979 DEPRESSION SCREENING 1991 SMOKING Hx and SMOKELESS TOBACCO SCREENING 08/27/1992 HEPATITIS C SCREENING 08/27/1997 HIV ONE-TIME SCREENING (18-65 YEARS) 08/27/1997 PAP SMEAR 08/27/2000 MAMMOGRAM 2019 COLOGUARD 08/27/2024 COLONOSCOPY 08/27/2024 COLORECTAL CANCER SCREENING 08/27/2024 FIT TEST 08/27/2024 FOBT 08/27/2024 SIGMOIDOSCOPY 08/27/2024 VIRTUAL COLONOSCOPY 08/27/2024 INFLUENZA VACCINE (#1) 2024 , 03/30/2022, 02/19/2021, Additional history exists COVID-19 VACCINE ( season) 2025 05/18/2021, 08/15/2020, 07/25/2020 HEPATITIS A VACCINES Aged Out No long er eligible based on patient's age to complete this topic HIB VACCINES Aged Out No longer eligi ble based on patient's age to complete this topic MENINGOCOCCAL VACCINES (ACWY) Aged Out No longer eligible based on patient's age to complete this topic MENINGOCOCCAL VACCINES (B) Aged Out N o longer eligible based on patient's age to complete this topic PNEUMOCOCCAL VACCINES (0-49 years) Aged Out No longer eligible based on patient's age to complete this topic Medical Devices Not on file Insurance [facility] Care Teams Computerized Table Cutter Relationship Specialty Start Date End Date Darin Alejandra MD [address] [place] [address] [place] [id number] PCP - General Internal Medicine 06/21/23 Additional Source Comments The information contained in this document represents components of the legal health record. It is not the complete legal health record.[facility]
== END 2025-03-08 16:22 | disposition home or self-care (01) ==
PROVIDERS: PCP Physician Assistant; Visit Provider Physician Assistant
DX: E78.5 Hyperlipidemia, unspecified (principal); R41.840 Attention and concentration deficit; N95.1 Menopausal and female climacteric states; D18.03 Hemangioma of intra-abdominal structures; L30.9 Dermatitis, unspecified